=== PATIENT | male | born 1960 | race Caucasian/White ===

== ENCOUNTER 2018-11-24 04:16 | Emergency (ER) | payer BC ==
--- NOTE | 2018-11-24 04:54 | EDM.PDOC ---
ED HPI GENERAL MEDICAL PROBLEM - General Chief Complaint: Abdominal Pain Stated Complaint: SEVERE LOWER ABDOMINAL PAIN CONSTIPATED Time Seen by Provider: 11/24/18 04:28 Source of Information: Reports: Patient, RN Notes Reviewed History Limitations: Reports: No Limitations - History of Present Illness INITIAL COMMENTS - FREE TEXT/NARRATIVE: The patient states that he had a dental extraction and 2 dental implants about 2 weeks ago. He was prescribed an opioid pain reliever, whose name he does not recall, but that he took for about 5 days. Just about the time that he was finishing the opioid pain reliever, the patient stopped having bowel movements, and has not had a bowel movement since. He has developed suprapubic cramps. No urinary symptoms. No recent fever. The patient states that he tried some Ex-Lax, without relief. He did not try any [id number] enemas. The patient does not suffer from chronic or recurrent constipation. The patient's PCP is Dr. Xin Al, in [place], [place]. Lower Abdomen Pain Score (Numeric/FACES): 10 - Related Data Allergies Allergy/AdvReac Type Severity Reaction Status Date / Time No Known Allergies Allergy Verified 02/22/18 10:12 CDT Home Meds: Home Meds Losartan/Hydrochlorothiazide [Losartan-HCTZ 100-12.5 MG] 1 tab PO DAILY [History] atorvaSTATin [Lipitor] 40 mg PO DAILY 11/24/18 [History] Past Medical History Cardiovascular History: Reports: High Cholesterol, Hypertension - Past Surgical History HEENT Surgical History: Reports: Oral Surgery (Dental extractions and implants) Neurological Surgical History: Reports: Other (See Below) (Right ulnar nerve translocation) Musculoskeletal Surgical History: Reports: Other (See Below) (Left knee surg x 2 - 1 open, 1 arthroscopic) Dermatological Surgical History: Reports: Skin Graft (left arm) Social & Family History - Family History Family Medical History: Noncontributory - Tobacco Use Tobacco Use Within Last Twelve Months: Smokeless Tobacco (Chews 1 can/day) - Caffeine Use Caffeine Use: Reports: Coffee Other Caffeine Use: 5 cups a day - Alcohol Use Alcohol Use History: Yes Alcohol Use Frequency: Binges (drinks heavily about twice a week) - Recreational Drug Use Recreational Drug Use: No - Living Situation & Occupation Living situation: Reports: , with Spouse 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 ED EXAM, GI/ABD - Physical Exam Exam: See Below Exam Limited By: No Limitations General Appearance: Alert, WD/WN, No Apparent Distress Eyes: Bilateral: Normal Appearance, EOMI Ears: Normal External Exam, Hearing Grossly Normal Nose: Normal Inspection Throat/Mouth: Normal Inspection, Normal Lips, Normal Voice, No Airway Compromise Head: Atraumatic, Normocephalic Neck: Normal Inspection, Full Range of Motion Respiratory/Chest: No Respiratory Distress, Lungs Clear, Normal Breath Sounds, No Accessory Muscle Use Cardiovascular: Normal Peripheral Pulses, Regular Rate, Rhythm, No Edema, No Gallop, No JVD, No Murmur, No Rub GI/Abdominal Exam: Normal Bowel Sounds, Soft, Non-Tender (including suprapubically), No Organomegaly, No Distention, No Abnormal Bruit, No Mass, Other (Obese) (Male) Exam: Deferred Rectal (Males) Exam: Normal Exam, Normal Rectal Tone, Other (Relatively soft brown stool in the rectum. No fecal impaction.) Back Exam: Normal Inspection, Full Range of Motion. No: CVA Tenderness (L), CVA Tenderness (R) Extremities: Normal Inspection, Normal Range of Motion, No Pedal Edema, Normal Capillary Refill Neurological: Alert, Oriented, Normal Cognition, No Motor/Sensory Deficits Psychiatric: Normal Affect Skin Exam: Warm, Dry, Intact, Normal Color, No Rash Course - Vital Signs Last Recorded V/S: Last Vital Signs Temp 36.1 C 11/24/18 04:23 Pulse 62 11/24/18 04:23 Resp 16 11/24/18 04:23 BP 120/79 11/24/18 04:23 Pulse Ox 100 11/24/18 04:23 - Orders/Labs/Meds Orders: Active Orders 24 hr Category Date Time Status Enema [RC] ASDIRECTED Care 11/24/18 04:59 Active KUB [Abdomen 1V Flat] [CR] Stat Exams 11/24/18 04:30 Taken - Re-Assessments/Exams Free Text/Narrative Re-Assessment/Exam: 11/24/18 04:43 The KUB appears to demonstrate some stool seen in both the right and left side of the colon, with a modest amount in the rectum. No stool seen in the transverse colon. Otherwise nonspecific bowel gas pattern. No free air noted. Formal read per the Radiologist pending. 11/24/18 05:00 On rectal examination, the patient has fairly soft stool in the rectum, that I would expect that he would be able to pass on his own. The patient states that he feels like it is hard, and he is unable to pass it. I am curious whether or not the patient may have colitis or proctitis that makes him feel like he is constipated when in fact he is not. The patient will receive an enema, then try to defecate. If that relieves his symptoms, then he can be discharged home. If he is either unable to defecate, or defecation fails to relieve his symptoms, I will order a CT scan of the abdomen and pelvis with oral and IV contrast, to further evaluate. 11/24/18 05:19 The patient received a mineral oil enema, had a bowel movement, and now feels much better. He would like to go home. Departure - Departure Time of Disposition: 05:20 Disposition: Home, Self-Care 01 Condition: Good Clinical Impression: Constipation - Discharge Information *PRESCRIPTION DRUG MONITORING PROGRAM REVIEWED*: Not Applicable *COPY OF PRESCRIPTION DRUG MONITORING REPORT IN PATIENT JUAN DAVID: Not Applicable Referrals: PCP,Not In Area [Primary Care Provider] - Forms: ED Department Discharge Additional Instructions: You were seen in the emergency room after not having a bowel movement for 7 days. Workup in the ER included a KUB x-ray, which showed a moderate amount of stool in your colon. Following a mineral oil enema, you were able to have a bowel movement and relief of your symptoms. Since you are no longer on an opioid pain reliever, constipation should no longer be an issue, however, we commended that you eat a high-fiber diet with plenty of fluids. If any other problems, please do not hesitate to return to the ER. - My Orders Last 24 Hours: My Active Orders 11/24/18 04:30 KUB [Abdomen 1V Flat] [CR] Stat 11/24/18 04:59 Enema [RC] ASDIRECTED - Assessment/Plan Last 24 Hours: My Active Orders 11/24/18 04:30 KUB [Abdomen 1V Flat] [CR] Stat 11/24/18 04:59 Enema [RC] ASDIRECTED
--- NOTE | 2018-11-25 10:16 | CR ---
Abdomen: Supine view of the abdomen was obtained. Comparison: No previous study. Bowel gas pattern appears within normal limits. Calcifications are seen within the pelvis most likely due to phleboliths. Bony structures show mild degenerative change within the spine. Impression: 1. Incidental findings. Nothing acute is seen. Diagnostic code #2
== END 2018-11-24 05:29 | disposition home or self-care (01) ==
LOC: JD.ED 04:16
DX: K59.00 Constipation, unspecified (principal); E78.00 Pure hypercholesterolemia, unspecified; I10 Essential (primary) hypertension; F17.220 Nicotine dependence, chewing tobacco, uncomplicated; Z79.899 Other long term (current) drug therapy
CPT/HCPCS: 74018; 74018-26; 99282; 99283-25